=== PATIENT | female | born 1975 | race Hispanic/Latino ===

== ENCOUNTER 2023-12-10 12:32 | Inpatient (IN) | payer OTHER ==
[~2023-12-10] VITALS: Ht 157.5 cm; Wt 70.6 kg
[2023-12-10] MEDS: MECLIZINE HCL 25 MG TABLET PO ONE (13:12)
[2023-12-10] MEDS: ONDANSETRON 4MG INJ IVP ONE (13:12)
[2023-12-10 13:37] LABS: BASOPHILS # (AUTO) 0.03 K/uL (0.00-0.20); BASOPHILS % (AUTO) 0.4 % (0.0-5.0); EOSINOPHILS % (AUTO) 1.3 % (0.0-8.0); HEMATOCRIT 34.6 % (36-48); IMMATURE GRANULOCYTE ABSOLUTE 0.06 K/uL (0-1); LYMPHOCYTES # (AUTO) 1.8 K/uL (1.0-4.8); LYMPHOCYTES % (AUTO) 22.6 % (21.0-51.0); MEAN CORPUSCULAR HEMOGLOBIN 32.9 pg (27.0-33.0); MEAN CORPUSCULAR HGB CONC 32.9 g/dL (32.0-36.0); MEAN CORPUSCULAR VOLUME 99.7 fL (79-99); MONOCYTES # (AUTO) 0.6 K/uL (0.1-1.0); MONOCYTES % (AUTO) 7.1 % (3.0-13.0); NEUTROPHILS # (AUTO) 5.4 K/uL (1.8-7.7); NEUTROPHILS % (AUTO) 67.8 % (40.0-77.0); PLATELET COUNT (AUTO) 247 K/uL (130-400); RED BLOOD CELL COUNT(AUTO) 3.47 MIL/uL (4.00-5.50); WHITE BLOOD COUNT (AUTO) 7.9 K/uL (4.8-10.8)
[2023-12-10 13:50] LABS: POTASSIUM 4.2 mmol/L (3.5-5.1)
[2023-12-10 13:55] LABS: BILIRUBIN,TOTAL 0.3 mg/dL (0.2-1.0); TOTAL PROTEIN, SERUM 7.7 g/dL (6.0-8.3)
[2023-12-10] MEDS: SOLU-MEDROL 125MG VIAL IM ONE (14:40)
[2023-12-10] MEDS: PROMETHAZINE HCL 25 MG/ML 1ML AMPULE IM ONE (14:40)
[2023-12-10] MEDS: DIAZEPAM 5 MG/ML 2 ML SYG IVP ONE (16:47)
[2023-12-10] MEDS: LACTATED RINGERS 1000ML 1,000 ML IV SCH (17:58)
[2023-12-10] MEDS ORDERED: HYDROCODONE/ACETAMINOPHEN 5/325 MG TAB PO PRN (18:00)
[2023-12-10] MEDS ORDERED: ACETAMINOPHEN 325 MG TAB PO PRN (18:00)
[2023-12-10] MEDS ORDERED: ACETAMINOPHEN 650 MG SUPPOSITORY RC PRN (18:00)
[2023-12-10] MEDS ORDERED: ALBUTEROL 0.083% 2.5 MG/3 ML INH IH PRN (18:00)
[2023-12-10] MEDS ORDERED: KETOROLAC 15MG/ML VIAL (15MG/ML) IV PRN (18:30)
[2023-12-10 20:00] VITALS: BP 140/78; PULSE 71; RESP 20
[2023-12-10] MEDS: MECLIZINE HCL 25 MG TABLET PO PRN (20:15)
[2023-12-10 20:50] LABS: HEMOGLOBIN A1C 5.5 % (4.0-6.0)
[2023-12-10] MEDS ORDERED: FAMOTIDINE 20MG TAB PO SCH (21:00)
[2023-12-10] MEDS: INSULIN HUMULIN R 100 UNIT/ML 3ML SQ SCH (21:00)
[2023-12-10] MEDS: GABAPENTIN 100 MG CAPSULE PO SCH (21:00)
[2023-12-10] MEDS ORDERED: METF-446 PO (21:01)
[2023-12-10] MEDS ORDERED: METO100T14 PO (21:01)
[2023-12-10] MEDS ORDERED: LEVO50 PO (21:01)
[2023-12-10] MEDS ORDERED: ATOR20TA65 PO (21:04)
[2023-12-10] MEDS ORDERED: GABA-529 PO (21:04)
[2023-12-10] MEDS ORDERED: VITA1CAP85 PO (21:04)
[2023-12-10 21:12] LABS: THYROID STIMULATING HORMONE 0.37 uIU/mL (0.36-3.74)
[2023-12-10 23:38] VITALS: BP 124/77; PULSE 69; RESP 16
[2023-12-11] VITALS (8 sets, daily range): BP systolic 98–120; BP diastolic 60–75; PULSE 57–78; RESP 16–21; O2SAT 98–99
[2023-12-11] MEDS: ONDANSETRON 4MG INJ IVP PRN (02:40)
[2023-12-11 04:38] LABS: BASOPHILS # (AUTO) 0.02 K/uL (0.00-0.20); BASOPHILS % (AUTO) 0.1 % (0.0-5.0); HEMATOCRIT 33.8 % (36-48); IMMATURE GRANULOCYTE ABSOLUTE 0.06 K/uL (0-1); LYMPHOCYTES % (AUTO) 7.6 % (21.0-51.0); MEAN CORPUSCULAR HEMOGLOBIN 31.8 pg (27.0-33.0); MEAN CORPUSCULAR HGB CONC 32.8 g/dL (32.0-36.0); MEAN CORPUSCULAR VOLUME 96.8 fL (79-99); MONOCYTES # (AUTO) 0.3 K/uL (0.1-1.0); MONOCYTES % (AUTO) 2.1 % (3.0-13.0); NEUTROPHILS # (AUTO) 12.1 K/uL (1.8-7.7); NEUTROPHILS % (AUTO) 89.8 % (40.0-77.0); PLATELET COUNT (AUTO) 245 K/uL (130-400); RED BLOOD CELL COUNT(AUTO) 3.49 MIL/uL (4.00-5.50); RED CELL DISTRIBUTION WIDTH 12.8 % (11.0-15.5); WHITE BLOOD COUNT (AUTO) 13.5 K/uL (4.8-10.8)
[2023-12-11 05:00] LABS: MAGNESIUM 1.4 mg/dL (1.80-2.40); PHOSPHORUS 5.1 mg/dL (2.5-4.9); POTASSIUM 4.3 mmol/L (3.5-5.1)
[2023-12-11] MEDS: LEVOTHYROXINE 50 MCG TABLET PO SCH (07:23)
[2023-12-11] MEDS: VITAMIN B COMPLEX 1 CAPSULE PO SCH (08:58)
[2023-12-11] MEDS: METFORMIN HCL 500 MG TABLET PO SCH (08:59)
[2023-12-11] MEDS ORDERED: POLYETHYLENE GLYCOL 3350 17 GM POWD.PACK PO SCH (09:00)
[2023-12-11] MEDS ORDERED: ASCORBIC ACID 500 MG TAB PO SCH (09:00)
[2023-12-11] MEDS: METOPROLOL TARTRATE 50 MG TAB PO SCH (09:00)
[2023-12-11] MEDS ORDERED: GABAPENTIN 100 MG CAPSULE PO SCH (09:00)
[2023-12-11] MEDS ORDERED: POTASSIUM CHLORIDE 20MEQ/100ML 100 ML IV PRN (11:00)
[2023-12-11] MEDS ORDERED: POTASSIUM CHLORIDE 10% ELIXIR 20 MEQ/15 ML UDCUP PO PRN (11:00)
[2023-12-11] MEDS ORDERED: KCL 20 MEQ ERTAB PO PRN (11:00)
[2023-12-11] MEDS ORDERED: ERGO500093 PO (11:50)
[2023-12-11] MEDS ORDERED: NAPR-1023 PO (11:50)
[2023-12-11] MEDS ORDERED: CAND4TAB11 PO (11:50)
[2023-12-11] MEDS ORDERED: FERR-82 PO (11:50)
[2023-12-11] MEDS ORDERED: FAMO20TA8 PO (11:50)
[2023-12-11] MEDS ORDERED: ESCI20TA38 PO (11:50)
[2023-12-11] MEDS ORDERED: COPP2CAP PO (11:50)
[2023-12-11] MEDS: MAGNESIUM 2GM PREMIX 50ML 50 ML IV SCH (14:25)
[2023-12-11] MEDS ORDERED: COMPOUND IV REFRIGERATED 1 EACH IVSOLN MISC PRN (19:30)
[2023-12-11] MEDS: ATORVASTATIN 20 MG TABLET PO SCH (20:06)
[2023-12-11] MEDS: M.V.I. IV [ADULT] 10 ML, FOLIC ACID 1 MG, THIAMINE HCL 100 MG in 0.9%NACL 1000ML 1,000 ML IV SCH (20:16)
[2023-12-12] VITALS (8 sets, daily range): BP systolic 112–127; BP diastolic 60–72; PULSE 57–76; RESP 16–20; O2SAT 99–100
[2023-12-12] MEDS: FERROUS FUMARATE 324 MG TABLET PO SCH (08:21)
[2023-12-12] MEDS: (Escitalopram Oxalate 20 MG) PO SCH (08:24)
[2023-12-12 09:53] LABS: BASOPHILS # (AUTO) 0.02 K/uL (0.00-0.20); BASOPHILS % (AUTO) 0.2 % (0.0-5.0); EOSINOPHILS # (AUTO) 0.06 K/uL (0.00-0.70); EOSINOPHILS % (AUTO) 0.7 % (0.0-8.0); HEMATOCRIT 34.4 % (36-48); IMMATURE GRANULOCYTE ABSOLUTE 0.03 K/uL (0-1); LYMPHOCYTES # (AUTO) 2.8 K/uL (1.0-4.8); MEAN CORPUSCULAR HEMOGLOBIN 32.8 pg (27.0-33.0); MEAN CORPUSCULAR VOLUME 102.7 fL (79-99); MONOCYTES # (AUTO) 0.6 K/uL (0.1-1.0); MONOCYTES % (AUTO) 7.6 % (3.0-13.0); NEUTROPHILS # (AUTO) 4.7 K/uL (1.8-7.7); NEUTROPHILS % (AUTO) 57.1 % (40.0-77.0); PLATELET COUNT (AUTO) 213 K/uL (130-400); RED BLOOD CELL COUNT(AUTO) 3.35 MIL/uL (4.00-5.50); RED CELL DISTRIBUTION WIDTH 13.2 % (11.0-15.5); WHITE BLOOD COUNT (AUTO) 8.2 K/uL (4.8-10.8)
[2023-12-12 10:01] LABS: CREATININE 1.2 mg/dL (0.5-1.0)
[2023-12-12] MEDS ORDERED: M.V.I. 10 ML, FOLIC ACID 1 MG, THIAMINE HCL 100 MG in 0.9%NACL 1000ML IV SCH (12:00)
[2023-12-13 03:18] VITALS: BP 129/71; PULSE 62; RESP 18
[2023-12-13] MEDS ORDERED: MECL-302 PO (07:32)
[2023-12-13 08:00] VITALS: O2SAT 97
[2023-12-13 08:09] VITALS: BP 118/72; PULSE 58; RESP 18
[2023-12-13 11:56] VITALS: BP 118/68; PULSE 79; RESP 18
== END 2023-12-13 14:40 | disposition home or self-care (01) | DRG 149 ==
LOC: EDH 12:32 → EDHIP 18:03 → OBSVTOIN 18:03 → 4CH 20:06
PROVIDERS: ADMIT Internal Medicine; ATTEND Internal Medicine
DX: H81.10 Benign paroxysmal vertigo, unspecified ear (principal); E87.6 Hypokalemia; D64.9 Anemia, unspecified; E03.9 Hypothyroidism, unspecified; E11.9 Type 2 diabetes mellitus without complications; E78.00 Pure hypercholesterolemia, unspecified; I10 Essential (primary) hypertension; Z90.710 Acquired absence of both cervix and uterus; Z98.84 Bariatric surgery status
CPT/HCPCS: 36415; 70450; 70551; 80048; 80053; 82607; 82746; 82948; 83036; 83735; 83880; 84100; 84145; 84443; 84484; 85025; 85651; 86140; 93005; 96372; 96374; 96375; G0378; J2405; J2550; J2919; J3360; J3411; J3475; J3490; J7030; J7120; A4600